=== PATIENT | female | born 1990 | race African-American/Black ===

== ENCOUNTER 2023-02-17 09:42 | Day surgery (SDC) | payer OTHER ==
[2023-02-17 10:05] VITALS: BMI 32.9
[2023-02-17] MEDS ORDERED: hydrALAZINE 20 MG/ML VIAL SLOW IVP PRN (10:58)
[2023-02-17 10:59] LABS: Fetal Membranes Rupture No Membranes Rupture (No Rupture)
== END 2023-02-17 11:42 | disposition home or self-care (01) ==
LOC: CSHLD/OP 09:42
PROVIDERS: ATTEND Family Medicine
DX: O47.1 False labor at or after 37 completed weeks of gestation (principal); Z3A.37 37 weeks gestation of pregnancy
CPT/HCPCS: 84112; 87480; 87510; 87660; 99285

== ENCOUNTER 2023-07-25 09:07 | Emergency (ER) | payer OTHER, SELFPAY | END 2023-07-25 12:58 | disposition home or self-care (01) | LOC: CSHERS 09:07 | DX: O99.891 Other specified diseases and conditions complicating pregnancy (principal); D17.39 Benign lipomatous neoplasm of skin and subcutaneous tissue of other sites; Z3A.12 12 weeks gestation of pregnancy | CPT/HCPCS: 76999 ==